=== PATIENT | male | born 1980 | race African-American/Black ===

== ENCOUNTER 2017-10-13 07:05 | Emergency (ER) | payer MEDICAID ==
[~2017-10-13] VITALS: Ht 190.5 cm; Wt 88.6 kg
[2017-10-13 07:08] VITALS: BP 153/94
== END 2017-10-13 09:00 | disposition left against medical advice (07) ==
LOC: EMS 07:08
DX: M54.5 Low back pain (principal); F17.210 Nicotine dependence, cigarettes, uncomplicated; Z53.21 Procedure and treatment not carried out due to patient leaving prior to being seen by health care provider